=== PATIENT | female | born 1970 | race Caucasian/White ===

== ENCOUNTER 2022-07-23 07:34 | Day surgery (SDC) | payer MEDICARE, MEDICAID ==
[2022-07-22 09:54] VITALS: BMI 24.1
[2022-07-23] MEDS ORDERED: Lidocaine 1% MPF 2 ML VIAL ONE (08:43)
[2022-07-23] MEDS ORDERED: Lidocaine 1% PF 5 ML VIAL ONE (09:34)
[2022-07-23] MEDS ORDERED: PROPOFOL 200 MG/20 ML VIAL ONE (09:34)
== END 2022-07-23 11:12 | disposition short-term general hospital (02) ==
LOC: SDC 07:34
PROVIDERS: ATTEND Internal Medicine Gastroenterology
PROC: 0DJD8ZZ Inspection of Lower Intestinal Tract, Via Natural or Artificial Opening Endoscopic (ICD-10-PCS; principal; 2022-07-23)
DX: Z12.11 Encounter for screening for malignant neoplasm of colon (principal); Q43.8 Other specified congenital malformations of intestine; F84.0 Autistic disorder; F73 Profound intellectual disabilities; M85.80 Other specified disorders of bone density and structure, unspecified site; Z79.899 Other long term (current) drug therapy
CPT/HCPCS: J2704